=== PATIENT | female | born 1960 | race Caucasian/White ===

== ENCOUNTER 2024-02-08 11:38 | Emergency (ER) | payer OTHER ==
[~2024-02-08] VITALS: Ht 170.2 cm; Wt 106.1 kg
[2024-02-08 12:01] VITALS: BP 158/100
== END 2024-02-08 14:24 ==
LOC: ER 11:38
DX: S06.0XAA Concussion with loss of consciousness status unknown, initial encounter (principal); V49.9XXA Car occupant (driver) (passenger) injured in unspecified traffic accident, initial encounter
CPT/HCPCS: 70450; 99284-25

== ENCOUNTER → 2024-07-07 | Outpatient (CLI) | payer SELFPAY ==
[2024-07-12 08:47] LABS: HPV HIGH RISK BY TMA Not Detected; HPV SOURCE Cervical/Vag
== END ==
LOC: LAB SHORT 13:10 → LAB 13:10
PROVIDERS: Obstetrics & Gynecology
DX: Z01.419 Encounter for gynecological examination (general) (routine) without abnormal findings (principal)
CPT/HCPCS: 87624; G0123

== ENCOUNTER 2024-07-21 11:47 | Day surgery (SDC) | payer SELFPAY ==
[~2024-07-21] VITALS: Ht 170.2 cm; Wt 102.7 kg
[2024-07-21] MEDS ORDERED: [UNRECOGNIZED DRUG - OTHER] (12:12)
[2024-07-21] MEDS ORDERED: Lactated Ringer's 1,000 ML IV ONE ×2 (12:25→15:32)
[2024-07-21] MEDS ORDERED: Scopolamine Hydrobromide Patch ONE (13:28)
[2024-07-21] MEDS ORDERED: FentaNYL Citrate 50 MCG/ML 2 ML Injection ONE (13:32)
[2024-07-21] MEDS ORDERED: propofoL 20 ML IV ONE (13:32)
[2024-07-21] MEDS ORDERED: Ketorolac Tromethamine 30mg Vial ONE (13:33)
[2024-07-21] MEDS ORDERED: Dexamethasone Sod Phos 10 MG/ML 1ML VIAL ONE (13:33)
[2024-07-21] MEDS ORDERED: Ondansetron HCl 2 MG / ML 2ML Vial ONE (13:33)
--- NOTE | 2024-07-21 14:18 | NUR ---
07/21/24 1418 Stephanie Ramírez MYOSURE NORMAL SALINE FLUID DEFICIT OF 75 ML. NOTIFIED.
[2024-07-21] MEDS ORDERED: Silver Nitr/Potassium Nitrate 1 EA APPL ONE (14:21)
[2024-07-21 14:58] VITALS: BP 113/58
[2024-07-21] MEDS ORDERED: OxyCODONE 5 mg/Acetamin 325 mg TABLET ONE (15:10)
--- NOTE | 2024-07-21 15:13 | NUR ---
07/21/24 1513 SHAMAR CASE RN NOTIFIED, NO PO PAIN MEDS ORDERED AT THIS TIME. PT PAIN LEVEL 5/10 "CRAMPING", STATES IS "NOT GREAT" WHEN ASKED IF ITS TOLERABLE.
== END 2024-07-21 15:44 | disposition home or self-care (01) ==
LOC: ORSCSDS 11:47
PROVIDERS: Obstetrics & Gynecology
PROC: 0UDB8ZX Extraction of Endometrium, Via Natural or Artificial Opening Endoscopic, Diagnostic (ICD-10-PCS; principal; 2024-07-21 13:00)
DX: C54.1 Malignant neoplasm of endometrium (principal); E03.9 Hypothyroidism, unspecified; Z79.899 Other long term (current) drug therapy
CPT/HCPCS: 88305; A9270; J1100; J1885; J2405; J2704; J3010; J7120